=== PATIENT | male | born 2000 | race African-American/Black ===

== ENCOUNTER 2018-01-22 11:22 | Emergency (ER) | payer MEDICAID ==
[~2018-01-22] VITALS: Ht 175.3 cm; Wt 65.0 kg
[2018-01-22 12:06] VITALS: BP 130/87
== END 2018-01-22 16:20 | disposition left against medical advice (07) ==
LOC: ER 12:54
DX: M79.642 Pain in left hand (principal)
CPT/HCPCS: 99281